=== PATIENT | female | born 1945 | race Caucasian/White ===

== ENCOUNTER → 2017-01-27 | Outpatient (CLI) | payer OTHER | LOC: FIMAGING 13:56 | PROVIDERS: ATTEND Internal Medicine | DX: Z12.31 Encounter for screening mammogram for malignant neoplasm of breast (principal) | CPT/HCPCS: G0202 ==

== ENCOUNTER → 2017-03-22 | Outpatient (CLI) | payer OTHER | LOC: FIMAGING 13:03 | PROVIDERS: ATTEND Internal Medicine | DX: D47.2 Monoclonal gammopathy (principal) | CPT/HCPCS: 84166-90; 99000-PO ==

== ENCOUNTER 2017-05-03 09:10 | Emergency (ER) | payer OTHER ==
[2017-05-03 09:27] VITALS: TEMP 97.3
--- NOTE | 2017-05-03 09:34 | EDPHY ---
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 No erythema. No fever. No trauma. 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 She went to [facility] who recommended wheat grass which she has began taking and since that time is had trouble controlling her INR. She also takes vitamin D, C and E on a regular basis. No GI symptoms. No cardiac or pulmonary symptoms. No weakness numbness or deficits. REVIEW OF SYSTEMS: Constitutional: denies: chills, fever, recent illness, recent injury EENTM: denies: blurred vision, double vision, nose congestion Respiratory: denies: cough, shortness of breath Cardiac: denies: chest pain, irregular heart rate, lightheadedness, palpitations Gastrointestinal/Abdominal: denies: abdominal pain, diarrhea, nausea, vomiting, blood streaked stools Genitourinary: denies: dysuria, frequency, hematuria, pain Musculoskeletal: See HPI Skin: denies: lesions, rash, jaundice, bruising Neurological: denies: headache, numbness, paresthesia, tingling, dizziness, weakness Hematologic/Lymphatic: denies: blood clots, easy bleeding, easy bruising Immunologic/allergic: denies: HIV/AIDS, transplant EXAM: GENERAL: Well-appearing, well-nourished and in no acute distress. HEAD: Atraumatic, normocephalic. EYES: Pupils equal round and reactive to light, extraocular movements intact, sclera anicteric, conjunctiva are normal. ENT: TMs normal, nares patent, oropharynx clear without exudates. Moist mucous membranes. NECK: Normal range of motion, supple without lymphadenopathy or JVD. LUNGS: Breath sounds clear to auscultation bilaterally and equal. No wheezes rales or rhonchi. HEART: Regular rate and rhythm without murmurs, rubs or gallops. ABDOMEN: Soft, nontender, normoactive bowel sounds. No guarding, no rebound. No masses appreciated. BACK: No CVA tenderness, no spinal tenderness, step-offs or deformities EXTREMITIES: Normal range of motion, no pitting or edema. No clubbing or cyanosis. No calf tenderness, negative Homans NEUROLOGICAL: Cranial nerves II through XII grossly intact. Normal speech, normal gait. 5/5 strength, normal movement in all extremities, normal sensation PSYCH: Normal mood, normal affect. SKIN: Right medial ankle with venous congestion, mild tenderness and mild bruising. No erythema or swelling. Source: Patient Exam Limitations: No limitations - Personal History Current Tetanus Diphtheria and Acellular Pertussis (TDAP): Unsure - Medical/Surgical History Hx Asthma: No Hx Chronic Respiratory Disease: No Hx Diabetes: Yes Hx Cardiac Disease: No Hx Renal Disease: No Hx Cirrhosis: No Hx Alcoholism: No Hx HIV/AIDS: No Hx Splenectomy or Spleen Trauma: No Other PMH: med hx-DVT/PE/HTN, choesterol and diabtes, "MGUS". surg-TONSIL - Family History Significant Family History: No pertinent family hx - Social History Smoking Status: Never smoked Alcohol Use: Sober Drug Use: None Constitutional: Initial Vital Signs Temperature (C) 36.3 C 05/03/17 09:24 Heart Rate 95 05/03/17 09:24 Respiratory Rate 16 05/03/17 09:24 Blood Pressure 175/93 H 05/03/17 09:24 O2 Sat (%) 97 05/03/17 09:24 O2 Delivery Mode Room Air Allergies/Adverse Reactions: No Known Allergies Allergy (Verified 05/09/14 13:31) Home Medications: Medication Instructions Recorded Amlodipine Besylate/Benazepril 1 each PO 11/16/11 [Amlodipine-Benazepril 5-10 mg] Atorvastatin Calcium [Lipitor 20 20 mg PO DAILY 11/16/11 mg (RX)] CHOLECALCIFEROL [Vitamin D] 400 unit PO 11/16/11 Hydrochlorothiazide 25 mg PO DAILY 11/16/11 [Hydrochlorothiazide 25 MG (RX)] Warfarin Sodium [Coumadin 1MG (RX)] 7.5 mg PO 11/16/11 Warfarin Sodium [Coumadin 5MG (RX)] 5 mg PO DAILY16 11/16/11 Albuterol [Proventil Inhaler HFA 05/09/14 (*)] Benzonatate [Tessalon Pearles] 05/09/14 Multiple Vitamin 05/09/14 Vitamin B Complex [B Complex] 05/09/14 metFORMIN HCL [Metformin HCl ER] 05/09/14 Medical Decision Making - Diagnostics Imaging Results: Imaging Impressions Extremity Venous Study 05/03/17 09:32 Impression: No deep venous thrombosis right leg. Findings and recommendations discussed with Emergency Department physician, TANISHA TREVINO at 10:24 hour, 05/03/2017. Final report concurs with initial preliminary interpretation. Imaging: Discussed imaging studies w/ call box wirer Radiologist ED Course/Re-evaluation: We discussed the test results. The patient's INR goal is between 2 and 3. I encouraged her to go back to her regular dose. Last night she took 10 within 7.5 mg. I also advised her to discontinue the week . I recommended she take ibuprofen for the next 3 days for her symptoms that are consistent with the superficial thrombophlebitis in her ankle. No sign of trauma or infection. She is happy with this plan and declines further workup or testing at this time. We discussed indications for returning to the emergency department. Differential Diagnosis: Partial list of the Differential diagnosis considered include but were not limited to; thrombophlebitis, contusion and although unlikely based on the history and physical exam, I also considered infection, DVT, fracture. I discussed these differential diagnoses and the plan with the patient as well as the usual and expected course. The patient understands that the diagnosis is provisional and that in medicine we are not always correct and that further workup is often warranted. Usual and customary warnings were given. All of the patient's questions were answered. The patient was instructed to return to the emergency department should the symptoms at all worsen or return, otherwise to followup with the physician as we discussed. - Data Points Laboratory Results: Laboratory Results 05/03/17 09:45 05/03/17 09:45 05/03/17 05/03/17 05/03/17 09:45 09:45 09:45 WBC 5.68 10^3/uL 10^3/uL (3.80-9.50) RBC 5.14 10^6/uL 10^6/uL (4.18-5.33) Hgb 15.9 g/dL g/dL (12.6-16.3) Hct 44.9 % % (38.0-47.0) MCV 87.4 fL fL (81.5-99.8) MCH 30.9 pg pg (27.9-34.1) MCHC 35.4 g/dL g/dL (32.4-36.7) RDW 13.2 % % (11.5-15.2) Plt Count 207 10^3/uL 10^3/uL (150-400) MPV 8.8 fL fL (8.7-11.7) Neut % (Auto) 71.0 % % (39.3-74.2) Lymph % (Auto) 17.6 % % (15.0-45.0) Kane % (Auto) 7.0 % % (4.5-13.0) Eos % (Auto) 3.2 % % (0.6-7.6) Baso % (Auto) 0.7 % % (0.3-1.7) Nucleat RBC Rel Count 0.0 % % (0.0-0.2) Absolute Neuts (auto) 4.03 10^3/uL 10^3/uL (1.70-6.50) Absolute Lymphs (auto) 1.00 10^3/uL 10^3/uL (1.00-3.00) Absolute Monos (auto) 0.40 10^3/uL 10^3/uL (0.30-0.80) Absolute Eos (auto) 0.18 10^3/uL 10^3/uL (0.03-0.40) Absolute Basos (auto) 0.04 10^3/uL 10^3/uL (0.02-0.10) Absolute Nucleated RBC 0.00 10^3/uL 10^3/uL (0-0.01) Immature Gran % 0.5 % % (0.0-1.1) Immature Gran # 0.03 10^3/uL 10^3/uL (0.00-0.10) PT 24.0 SEC H SEC (12.0-15.0) INR 2.21 H (0.83-1.16) APTT 35.3 SEC SEC (23.0-38.0) Sodium 143 mEq/L mEq/L (134-144) Potassium 3.7 mEq/L mEq/L (3.5-5.2) Chloride 100 mEq/L mEq/L (97-110) Carbon Dioxide 26 mEq/l mEq/l (22-31) Anion Gap 17 mEq/L H mEq/L (8-16) BUN 20 mg/dL mg/dL (7-23) Creatinine 0.9 mg/dL mg/dL (0.6-1.0) Estimated GFR > 60 Glucose 185 mg/dL H mg/dL (70-100) Calcium 9.7 mg/dL mg/dL (8.5-10.4) Departure - Departure Disposition: Home, Routine, Self-Care Clinical Impression: Thrombophlebitis leg superficial Qualifiers: Laterality: right Qualified Code(s): I80.01 - Phlebitis and thrombophlebitis of superficial vessels of right lower extremity Condition: Good Instructions: Warfarin (By mouth), Superficial Thrombophlebitis (ED) Referrals: Aj Gates MD [Primary Care Provider] - As per Instructions
[2017-05-03 09:52] LABS: % IMMATURE GRANULYOCYTES 0.5 % (0.0-1.1); ABSOLUTE IMMATURE GRANULOCYTES 0.03 10^3/uL (0.00-0.10); ADD DIFF? NO; ADD MORPH? NO; ADD SCAN? NO; ATYPICAL LYMPHOCYTE FLAG 0 (0-99); FRAGMENT RBC FLAG 0 (0-99); HEMATOCRIT 44.9 % (38.0-47.0); HEMOGLOBIN 15.9 g/dL (12.6-16.3); LEFT SHIFT FLG 0 (0-99); LIPEMIA HEMOLYSIS FLAG 90 (0-99); MEAN CELL HEMOGLOBIN 30.9 pg (27.9-34.1); MEAN CELL HEMOGLOBIN CONCENTR. 35.4 g/dL (32.4-36.7); MEAN CELL VOLUME 87.4 fL (81.5-99.8); MEAN PLATELET VOLUME 8.8 fL (8.7-11.7); PLATELET CLUMPS FLAG 0 (0-99); PLATELET COUNT 207 10^3/uL (150-400); RED BLOOD CELL COUNT 5.14 10^6/uL (4.18-5.33); RED CELL DISTRIBUTION WIDTH 13.2 % (11.5-15.2)
[2017-05-03 10:05] LABS: INR 2.21 (0.83-1.16)
[2017-05-03 10:06] LABS: APTT 35.3 SEC (23.0-38.0)
[2017-05-03 10:07] LABS: ANION GAP 17 mEq/L (8-16); CALCIUM 9.7 mg/dL (8.5-10.4); CARBON DIOXIDE 26 mEq/l (22-31); CHLORIDE 100 mEq/L (97-110); CREATININE 0.9 mg/dL (0.6-1.0); GLOMERULAR FILTRATION RATE > 60; GLUCOSE 185 mg/dL (70-100); POTASSIUM 3.7 mEq/L (3.5-5.2); SODIUM 143 mEq/L (134-144)
[2017-05-03 10:35] VITALS: BP 177/94; PULSE 86; RESP 18; O2SAT 95
== END 2017-05-03 10:35 | disposition home or self-care (01) ==
LOC: CED 09:10
DX: I80.01 Phlebitis and thrombophlebitis of superficial vessels of right lower extremity (principal); I10 Essential (primary) hypertension; E11.9 Type 2 diabetes mellitus without complications; Z79.01 Long term (current) use of anticoagulants; Z79.84 Long term (current) use of oral hypoglycemic drugs
CPT/HCPCS: 80048-PO; 85025-PO; 85610-PO; 85730-PO; 93971-PO

== ENCOUNTER → 2017-10-18 | Outpatient (CLI) | payer OTHER | LOC: CIMAGING 07:24 | PROVIDERS: ATTEND Internal Medicine | DX: R74.8 Abnormal levels of other serum enzymes (principal); R16.0 Hepatomegaly, not elsewhere classified; K76.0 Fatty (change of) liver, not elsewhere classified | CPT/HCPCS: 36415-PO; 76700-PO; G0472 ==

== ENCOUNTER 2018-03-16 10:39 | Emergency (ER) | payer OTHER ==
--- NOTE | 2018-03-16 11:05 | EDPHY ---
H & P Stated Complaint: hit head falling off chair this am and hit corner of desk. NO LOC on coumad Time Seen by Provider: 03/16/18 10:57 HPI/ROS: CHIEF COMPLAINT: Head injury HISTORY OF PRESENT ILLNESS: The patient is a 72-year-old female who comes to the emergency department because she fell out of her rolling chair this morning and hit the back of her head on the corner of the desk. She has a small hematoma to the region and abrasion. No laceration. She is on Coumadin for history of PE and DVT. She has a very slight headache. No neck pain. No injury to her extremities. She called her doctor who recommended she come here for CT. Severity: Mild Modifying factors: None REVIEW OF SYSTEMS: Constitutional: denies: chills, fever, recent illness, recent injury EENTM: denies: blurred vision, double vision, nose congestion Respiratory: denies: cough, shortness of breath Cardiac: denies: chest pain, irregular heart rate, lightheadedness, palpitations Gastrointestinal/Abdominal: denies: abdominal pain, diarrhea, nausea, vomiting, blood streaked stools Genitourinary: denies: dysuria, frequency, hematuria, pain Musculoskeletal: denies: joint pain, muscle pain Skin: denies: lesions, rash, jaundice, bruising Neurological: See HPI denies: numbness, paresthesia, tingling, dizziness, weakness Hematologic/Lymphatic: denies: blood clots, easy bleeding, easy bruising Immunologic/allergic: denies: HIV/AIDS, transplant 10 systems reviewed and negative except as noted EXAM: GENERAL: Well-appearing, well-nourished and in no acute distress. HEAD: Very small hematoma and abrasion to right occipital area. No crepitus or deformity. EYES: Pupils equal round and reactive to light, extraocular movements intact, sclera anicteric, conjunctiva are normal. ENT: TMs normal, nares patent, oropharynx clear without exudates. Moist mucous membranes. NECK: Normal range of motion, supple without lymphadenopathy or JVD. LUNGS: Breath sounds clear to auscultation bilaterally and equal. No wheezes rales or rhonchi. HEART: Regular rate and rhythm without murmurs, rubs or gallops. ABDOMEN: Soft, nontender, normoactive bowel sounds. No guarding, no rebound. No masses appreciated. BACK: No CVA tenderness, no spinal tenderness, step-offs or deformities EXTREMITIES: Normal range of motion, no pitting or edema. No clubbing or cyanosis. NEUROLOGICAL: Cranial nerves II through XII grossly intact. Normal speech, normal gait. 5/5 strength, normal movement in all extremities, normal sensation , normal reflexes PSYCH: Normal mood, normal affect. SKIN: Warm, dry, normal turgor, no visible rashes or lesions. Source: Patient - Personal History Current Tetanus/Diphtheria Vaccine: Unsure Current Tetanus Diphtheria and Acellular Pertussis (TDAP): Unsure - Medical/Surgical History Hx Asthma: No Hx Chronic Respiratory Disease: No Hx Diabetes: Yes Hx Cardiac Disease: No Hx Renal Disease: No Hx Cirrhosis: No Hx Alcoholism: No Hx HIV/AIDS: No Hx Splenectomy or Spleen Trauma: No Other PMH: med hx-DVT/PE/HTN, choesterol and diabtes, "MGUS". surg-TONSIL - Family History Significant Family History: No pertinent family hx - Social History Smoking Status: Never smoked Alcohol Use: Sober Drug Use: None Constitutional: Initial Vital Signs Temperature (C) 36.6 C 03/16/18 10:45 Heart Rate 87 03/16/18 10:45 Respiratory Rate 16 03/16/18 10:45 Blood Pressure 160/82 H 03/16/18 10:45 O2 Sat (%) 96 03/16/18 10:45 O2 Delivery Mode Room Air Allergies/Adverse Reactions: No Known Allergies Allergy (Verified 03/16/18 10:51) Home Medications: Medication Instructions Recorded Amlodipine Besylate/Benazepril 1 each PO 11/16/11 [Amlodipine-Benazepril 5-10 mg] Atorvastatin Calcium [Lipitor 20 20 mg PO DAILY 11/16/11 mg (RX)] CHOLECALCIFEROL [Vitamin D] 400 unit PO 11/16/11 Hydrochlorothiazide 25 mg PO DAILY 11/16/11 [Hydrochlorothiazide 25 MG (RX)] Warfarin Sodium [Coumadin 1MG (RX)] 7.5 mg PO 11/16/11 Warfarin Sodium [Coumadin 5MG (RX)] 5 mg PO DAILY16 11/16/11 Albuterol [Proventil Inhaler HFA 05/09/14 (*)] Benzonatate [Tessalon Pearles] 05/09/14 Multiple Vitamin 12/11/14 Vitamin B Complex [B Complex] 05/09/14 metFORMIN HCL [Metformin HCl ER] 05/09/14 Medical Decision Making - Diagnostics Imaging Results: Imaging Impressions Head CT 03/16/18 11:00 Impression: No acute intracranial process. Findings and recommendations discussed with TANISHA TREVINO at 1133 hour, 03/16. Imaging: Discussed imaging studies w/ carbon electrodes supervisor Radiologist ED Course/Re-evaluation: 11:40 a.m. We discussed the CT results. The patient is reassured. She does not wish to wait for the results of her INR testing which had to be sent to [facility] by health care legal assistant. We will call her with results. We discussed delayed bleeding and indications for returning to the ER. She feels comfortable with this plan. Differential Diagnosis: Partial list of the Differential diagnosis considered include but were not limited to; contusion, abrasion and although unlikely based on the history and physical exam, I also considered intracranial injury, fracture, hemorrhage, neck injury. I discussed these differential diagnoses and the plan with the patient as well as the usual and expected course. The patient understands that the diagnosis is provisional and that in medicine we are not always correct and that further workup is often warranted. Usual and customary warnings were given. All of the patient's questions were answered. The patient was instructed to return to the emergency department should the symptoms at all worsen or return, otherwise to followup with the physician as we discussed. - Data Points Laboratory Results: 03/16/18 11:20 PT 22.7 SEC H SEC (12.0-15.0) INR 1.99 H (0.83-1.16) APTT 36.0 SEC SEC (23.0-38.0) Departure - Departure Disposition: Home, Routine, Self-Care Clinical Impression: Contusion of scalp Qualifiers: Encounter type: initial encounter Qualified Code(s): S00.03XA - Contusion of scalp, initial encounter Condition: Fair Instructions: Hematoma (ED) Additional Instructions: If you develop worsening headache or confusion return to the emergency department immediately. Referrals: Aj Gates MD [Primary Care Provider] - As per Instructions
[2018-03-16 12:09] VITALS: BP 133/80
[2018-03-16 12:48] LABS: INR 1.99 (0.83-1.16); PROTIME(PATIENT) 22.7 SEC (12.0-15.0)
== END 2018-03-16 12:00 | disposition home or self-care (01) ==
LOC: CED 10:39
DX: S00.03XA Contusion of scalp, initial encounter (principal); W07.XXXA Fall from chair, initial encounter; Y99.8 Other external cause status; Y92.019 Unspecified place in single-family (private) house as the place of occurrence of the external cause; Z79.01 Long term (current) use of anticoagulants; Z86.711 Personal history of pulmonary embolism; Z86.718 Personal history of other venous thrombosis and embolism
CPT/HCPCS: 70450-PO

== ENCOUNTER 2018-08-11 03:30 | Emergency (ER) | payer OTHER ==
--- NOTE | 2018-08-11 04:00 | EDPHY ---
H & P Stated Complaint: palpitations for 2 hours Time Seen by Provider: 08/11/18 03:49 HPI/ROS: Chief Complaint: Palpitations HPI: A 73-year-old woman with a history of diabetes, hypertension a and blood clots in the past woke with palpitations this morning. Denies any chest pain. Denies shortness of breath. Does not have a history of similar episodes in the past. She is on Coumadin for her prior DVTs and PEs. No shortness of breath. No fevers or chills. She did have a cortisone shot in the knee for the 1st time yesterday afternoon. No redness or swelling. No nausea or vomiting. She has a chronic cough which is unchanged. ROS: 10 systems were reviewed and were negative except those elements noted in the HPI. PMH: Diabetes, hypertension, DVT, PE Social History: No smoking, no alcohol, no recreational drug use Family History: non-contributory Physical Exam: Gen: Awake, Alert, No Distress HEENT: Nose: no rhinorrhea Eyes: PERRLA, EOMI Mouth: Moist mucosa Neck: Supple, no JVD Chest: nontender, lungs clear to auscultation Heart: S1, S2 normal, no murmur, tachycardic Abd: Soft, non-tender, no guarding Back: no CVA tenderness, no midline tenderness Ext: no edema, non-tender Skin: no rash Neuro: CN II-XII intact, Sensation grossly intact, Strength 5/5 in bilateral upper and lower extremities - Personal History Current Tetanus Diphtheria and Acellular Pertussis (TDAP): Unsure - Medical/Surgical History Hx Asthma: No Hx Chronic Respiratory Disease: No Hx Diabetes: Yes Hx Cardiac Disease: No Hx Renal Disease: No Hx Cirrhosis: No Hx Alcoholism: No Hx HIV/AIDS: No Hx Splenectomy or Spleen Trauma: No Other PMH: med hx-DVT/PE/HTN, cholesterol and diabetes, fatty liver,sleep apnea. surg-TONSIL - Social History Smoking Status: Never smoked Constitutional: Initial Vital Signs Temperature (C) 36.8 C 08/11/18 03:41 Heart Rate 118 H 08/11/18 03:41 Respiratory Rate 12 08/11/18 03:41 Blood Pressure 198/122 H 08/11/18 03:41 O2 Sat (%) 95 08/11/18 03:41 O2 Delivery Mode Room Air Allergies/Adverse Reactions: No Known Allergies Allergy (Verified 08/11/18 03:39) Home Medications: Medication Instructions Recorded Amlodipine Besylate/Benazepril 1 each PO 11/16/11 [Amlodipine-Benazepril 5-10 mg] Atorvastatin Calcium [Lipitor 20 20 mg PO DAILY 11/16/11 mg (RX)] Hydrochlorothiazide 25 mg PO DAILY 11/16/11 [Hydrochlorothiazide 25 MG (RX)] Warfarin Sodium [Coumadin 1MG (RX)] 7.5 mg PO 11/16/11 Warfarin Sodium [Coumadin 5MG (RX)] 5 mg PO DAILY16 11/16/11 Vitamin B Complex [B Complex] 05/09/14 metFORMIN HCL [Metformin ER 05/09/14 Osmotic] Medical Decision Making - Diagnostics EKG Interpretation: ECG time 3:44 a.m., sinus tachycardia with a rate of 1 18, there premature atrial complexes. No acute ST or T-wave changes. ED Course/Re-evaluation: 73-year-old presenting with palpitations. She has sinus tachycardia on her ECG. Troponin is negative. Chemistries unremarkable. INR is subtherapeutic at 1.9 but she has no other findings suggestive of DVT or PE. She has responded well to L of fluids is tolerating p.o.. Heart rate has normalized. I think her symptoms are secondary to dehydration and the cortisone injection that she had done yesterday. No findings suggestive acute coronary syndrome. Repeat troponin is normal. Plan will be to discharge with follow-up primary care physician, return for any concerns. Blood pressure is also resolved. - Data Points Laboratory Results: 08/11/18 08/11/18 04:03 03:56 POC Sodium 143 mEq/L mEq/L (135-145) POC Potassium 3.7 mEq/L mEq/L (3.3-5.0) POC Chloride 102.0 mEq/L mEq/L (97-110) POC Total CO2 24 mEq/L mEq/L (22-31) POC BUN 19 mg/dL mg/dL (7-23) POC Creatinine 1.0 mg/dL mg/dL (0.6-1.0) POC Glucose 182 mg/dL H mg/dL (70-100) POC Calcium 10.5 mg/dL H mg/dL (8.5-10.4) POC Troponin I 0.01 ng/mL ng/mL (0.00-0.08) Medications Given: Discontinued Medications Sodium Chloride (Ns) 1,000 mls @ 0 mls/hr IV ONCE ONE; Wide Open PRN Reason: Protocol Stop: 08/11/18 04:02 Last Admin: 08/11/18 04:00 Dose: 1,000 mls Point of Care Test Results: CBC CBC Collection Date 08/11/18 CBC Collection Time 03:50 WBC 7.52 RBC 5.72 HGB 17.3 HCT 49.2 PLT 232 Neut # 6.27 Neut 83.4 LYMPH # 1.08 LYMPH 14.4 MCV 86.0 Chemistry 08/11/18 08/11/18 04:03 03:56 POC Sodium 143 mEq/L mEq/L (135-145) POC Potassium 3.7 mEq/L mEq/L (3.3-5.0) POC Chloride 102.0 mEq/L mEq/L (97-110) POC Total CO2 24 mEq/L mEq/L (22-31) POC BUN 19 mg/dL mg/dL (7-23) POC Creatinine 1.0 mg/dL mg/dL (0.6-1.0) POC Glucose 182 mg/dL H mg/dL (70-100) POC Calcium 10.5 mg/dL H mg/dL (8.5-10.4) POC Troponin I 0.01 ng/mL ng/mL (0.00-0.08) Urine Dip Collection Date 08/11/18 Collection Time 03:45 Specific Holderness (1.002-1.030) 1.005 PH (5.0-7.5) 6.0 Leukocytes (Negative) Negative Nitrites (Negative) Negative Protein (Negative) Negative Glucose (Negative) Negative Ketones (Negative) Negative Urobilnogen (0.2-1.0 EU) 0.2 Bilirubin (Negative) Negative Blood (Negative) Trace Departure - Departure Disposition: Home, Routine, Self-Care Clinical Impression: Palpitations, Dehydration Condition: Good Instructions: Heart Palpitations (ED), Dehydration (ED) Additional Instructions: Follow up with primary care physician in 3-4 days for recheck. Return to the emergency department for increasing chest pain, shortness of breath, worsening worsening palpitations, fainting, or any other concerns. Referrals: Sunita Walters, DO [Doctor of Osteopathy] - As per Instructions
[2018-08-11] MEDS ORDERED: NS 1,000 ML IV ONE (04:01)
[2018-08-11 06:16] VITALS: BP 138/73
== END 2018-08-11 06:27 | disposition home or self-care (01) ==
LOC: CED 03:30
DX: R00.2 Palpitations (principal); E86.0 Dehydration; I10 Essential (primary) hypertension; E11.9 Type 2 diabetes mellitus without complications; Z86.718 Personal history of other venous thrombosis and embolism; Z79.01 Long term (current) use of anticoagulants
CPT/HCPCS: 80048-ER; 84484-ER; 96360-ER; 99284-ER

== ENCOUNTER → 2018-11-08 | Outpatient (CLI) | payer OTHER | LOC: CIMAGING 12:28 ==

== ENCOUNTER 2018-11-10 07:58 | Day surgery (SDC) | payer OTHER | END 2018-11-10 12:10 | disposition home or self-care (01) | LOC: FSGY 07:58 ==